=== PATIENT | male | born 1985 | race Hispanic/Latino ===

== ENCOUNTER 2023-11-27 10:40 | Day surgery (SDC) | payer OTHER ==
[2023-11-26 15:58] VITALS: BMI 33.5
[2023-11-27] MEDS ORDERED: Oxymetazoline HCl 0.05% (30 ML BOT) ONE (13:24)
[2023-11-27] MEDS ORDERED: EPINEPHrine 1 MG/ML VIAL ONE (13:37)
[2023-11-27] MEDS ORDERED: Lidocaine 1% (PF) 30 ML VIAL ONE (13:38)
[2023-11-27] MEDS ORDERED: PROPOFOL 20 ML ONE (13:50)
[2023-11-27] MEDS ORDERED: fentaNYL PF 100 MCG/2 ML SYRINGE ONE (13:50)
[2023-11-27] MEDS ORDERED: Lidocaine 1% PF 5 ML VIAL ONE (13:51)
[2023-11-27] MEDS ORDERED: Ondansetron PF 4 MG/2 ML Vial ONE (13:51)
[2023-11-27] MEDS ORDERED: Dexamethasone 20 MG/5 ML VIAL ONE (13:51)
[2023-11-27] MEDS ORDERED: SUGAMMADEX SODIUM 200 MG/2 ML VIAL ONE (14:43)
[2023-11-27] MEDS ORDERED: fentaNYL 50 mcg/mL 1 mL Vial ONE (15:34)
[2023-11-27] MEDS ORDERED: Fentanyl 250 MCG/5 ML VIAL ONE (15:48)
[2023-11-27] MEDS ORDERED: hydrALAZINE 20 MG/ML VIAL ONE (16:19)
[2023-11-27] MEDS ORDERED: Hydrocodone-Acetamin 15 ML UDCUP ONE (16:50)
== END 2023-11-27 17:30 | disposition home or self-care (01) ==
LOC: SDC 10:40
PROVIDERS: ATTEND Specialist
PROC: 09SM4ZZ Reposition Nasal Septum, Percutaneous Endoscopic Approach (ICD-10-PCS; principal; 2023-11-27)
DX: J34.2 Deviated nasal septum (principal); J34.3 Hypertrophy of nasal turbinates; Z85.9 Personal history of malignant neoplasm, unspecified; M19.90 Unspecified osteoarthritis, unspecified site; F41.9 Anxiety disorder, unspecified; Z90.89 Acquired absence of other organs; Z79.899 Other long term (current) drug therapy
CPT/HCPCS: 30140; 30520; J0171; J0360; J3010; J1100; J2001; J2405; J2704